=== PATIENT | male | born 1955 ===

== ENCOUNTER 2018-10-01 22:23 | Emergency (ER) | payer SELFPAY ==
[2018-10-01] MEDS ORDERED: NS 1,000 ML IV ONE ×2 (22:46→23:53)
[2018-10-01] MEDS ORDERED: ONDANSETRON 4 MG/2 ML VIAL IVP ONE (22:46)
[2018-10-01] MEDS ORDERED: PROMETHAZINE HCL 25 MG/ML INJ IVP ONE (22:46)
[2018-10-01] MEDS ORDERED: FAMOTIDINE 20 MG in NS 100 ML IV ONE (22:46)
--- NOTE | 2018-10-01 22:57 | EDPHY ---
H & P Smoking Status: Never smoked <Anabelle Parrylin Adriana - Last Filed: 10/01/18 22:54> <Dasha Light - Last Filed: 10/02/18 01:46> Time Seen by Provider: 10/01/18 22:41 HPI/ROS: HPI Dizziness. Vomiting. 63-year-old male by private vehicle with his daughter and . He is and Yakut-speaking only. His daughter however translates competently. He presents to the emergency department with complaint of dizziness which is described as vertigo since early this morning accompanied by nausea and vomiting. He has had multiple episodes of vomiting described as nonbilious, nonbloody since this morning. He has not had any chest pain. Denies palpitations. Denies any focal weakness or loss of sensation in his extremities. No headache. No abdominal pain. ROS: Constitutional: No fever, no chills. No weakness. Eyes: No discharge. No changes in vision. ENT: No sore throat. No nasal congestion or rhinorrhea. Respiratory: No cough. No shortness of breath. Cardiac: No chest pain, no palpitations. Gastrointestinal: No abdominal pain, as above. Genitourinary: No hematuria. No dysuria or increased frequency with urination. Musculoskeletal: No back pain. No neck pain. No myalgias or arthralgias. Skin: No rashes. Neurological: No headache. No focal weakness or altered sensation. Past medical history: Prostatic hypertrophy. Type 2 diabetes he takes metformin for this. Hypertension. Hyperlipidemia. Primary care is through [facility]. Social history: Nonsmoker. Here with his and daughter. Denies alcohol. Physical Exam: General Appearance: Alert, he is not in distress. This patient is responding to questions appropriately and in full sentences. This patient appears well- hydrated and well-nourished. Eyes: Pupils equal and round no pallor or injection. No lid edema, erythema or injection. Mild Uni directional horizontal nystagmus. Respiratory: There are no retractions, lungs are clear to auscultation with good air movement bilaterally. Cardiovascular: Regular rate and rhythm. No murmur. Gastrointestinal: Abdomen is soft and nontender, no masses, bowel sounds normal. No focal tenderness at McBurney's point. No Kumar sign. Neurological: Motor sensory function is grossly intact. Cranial nerves are normal. Gait is normal. Cerebellar testing [id number], [id number] normal. Skin: Warm and dry, no rashes. Musculoskeletal: Neck is supple and nontender. Extremities are symmetrical. All joints range without pain or impingement. Psychiatric: No agitation. No depression. Database: EKG: EKG time is 10:51 p.m.; EKG shows a narrow complex normal sinus rhythm with a ventricular rate of 83. The PA, QRS, QT intervals are within normal limits. There are no ST-T wave changes indicative of ischemic or injury pattern. No evidence of right heart strain. Interpreted by me. Imaging: Procedures: Emergency department course: Triage vital signs reviewed. He is afebrile. He is moderately hypertensive. Pulse oximetry on room air low at 91%. IV placed. He was placed on a school bus monitor. He was started on IV normal saline with 1 L to be given over the next hour. For nausea and vomiting he will initially be given 4 mg of IV Zofran, 12.5 mg of IV Phenergan and 20 mg of IV Pepcid. EKG obtained and reviewed by myself. Care turned over to Dr. Dali Light at 11:00 p.m.. Differential Diagnosis: The differential diagnosis on this patient includes but is not limited to benign positional vertigo, central etiology of vertigo, DKA, food-borne illness , viral gastritis. This represents a partial list of diagnoses considered. These considerations are based on history, physical exam, past history, reassessment and diagnostic testing. (Candie Parry) Constitutional: Initial Vital Signs Temperature (C) 99.1 F 10/01/18 22:30 Heart Rate 82 10/01/18 22:30 Respiratory Rate 16 10/01/18 22:30 Blood Pressure 158/99 H 10/01/18 22:30 O2 Sat (%) 91 L 10/01/18 22:30 O2 Delivery Mode Room Air O2 (L/minute) 2 Allergies/Adverse Reactions: No Known Allergies Allergy (Unverified 10/01/18 22:37) Home Medications: Medication Instructions Recorded Finasteride [Proscar 5 MG (*)] 5 mg PO DAILY 10/01/18 Lisinopril 10 mg PO 10/01/18 Meloxicam 7.5 mg PO 10/01/18 Metformin HCl [Metformin 1000 mg] 1,000 mg PO 10/01/18 Pravastatin Sodium [Pravachol] 40 mg PO 10/01/18 Terazosin HCl [Hytrin 5 MG (*)] 5 mg PO 10/01/18 Medical Decision Making <Candie Parry - Last Filed: 10/01/18 22:54> - Diagnostics Imaging: Discussed imaging studies w/ broadband installer Radiologist (Prelinimary report per Dr. Au, [facility]: No acute intracranial abnormality. 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 No acute ischemic changes. (Dasha Light) ED Course/Re-evaluation: Mr. Mckenzie 63-year-old male was signed out to me at 11:00 p.m. After a brief history, physical and workup by the previous provider. A complete independent history, exam and evaluation was performed by me (environmental health safety engineer Lil #[id number]). The patient has been having dizziness and vomiting since this morning at 7:00 a.m.. He has not been ill recently. He denies ill contacts. He has had no previous episodes of this sort that he remembers. He denies headache, changes in vision, chest pain, shortness of breath, abdominal pain except at the time of vomiting, constipation, diarrhea, dysuria, numbness, tingling, weakness, or any other concerns. No new medications. His complete blood count is significant for a slightly elevated white blood cell count at 12.88. His comprehensive metabolic panel was within normal limits. Troponin was negative. Lactic acid was elevated at 3.5. EKG normal sinus rhythm without acute ischemic changes. He had been given famotidine, ondansetron, and promethazine as well as a liter of saline and was feeling better except for scant residual dizziness. CT brain: No acute intracranial abnormality. At least mild cerebral atrophy. (Preliminary report, [facility]). After three liters of normal saline it corrected to 2.4. Business Transformation Manager Vanessa #[id number] used to review results and answer questions. Dizziness 0/10. No nausea or vomiting. Gait normal. Patient and family understand that no clear cause for his symptoms has been identified this evening. They are aware it could be as serious as a stroke or as simple as benign positional vertigo. He was offered admission but declines and will see his PCP tomorrow (Tuesday, October 02) or return to the ER sooner if symptoms change or worsen. He was given a take home tablet of meclizine 25mg as well as a take home pack (#2) of Zofran 4mg ODT. He was given a work note for three days. (Dasha Light) - Data Points Laboratory Results: 10/02/18 10/01/18 10/01/18 01:00 23:45 22:47 POC Blood Source VENOUS VENOUS Patient Temperature 37.6 DEGREES DEGREES 37.7 DEGREES DEGREES POC VBG pH 7.33 7.38 (7.31-7.42) (7.31-7.42) POC VBG pCO2 43 mmHg mmHg 39 mmHg L mmHg (40-44) (40-44) POC VBG pO2 47 mmHg H mmHg 66 mmHg H mmHg (35-40) (35-40) POC VBG HCO3 22 mEq/L mEq/L 22 mEq/L mEq/L (22-26) (22-26) POC VBG Total CO2 24 mEq/L mEq/L 24 mEq/L mEq/L (21-27) (21-27) POC VBG Base Excess -3.0 mEq/L L mEq/L -3.0 mEq/L L mEq/L (-2.5-2.5) (-2.5-2.5) POC Mix VBG O2 Sat 78 % H % 92 % H % (65-75) (65-75) POC Sodium POC Potassium POC Chloride POC Total CO2 POC BUN POC Creatinine POC Glucose POC Lactic Acid Joshua 2.4 mmol/L H D mmol/L 3.5 mmol/L H mmol/L (0.7-2.1) (0.7-2.1) POC Calcium POC Total Bilirubin POC AST POC ALT POC Alk Phosphatase POC Troponin I 0.01 ng/mL ng/mL (0.00-0.08) POC Total Protein POC Albumin 10/01/18 22:46 POC Blood Source Patient Temperature POC VBG pH POC VBG pCO2 POC VBG pO2 POC VBG HCO3 POC VBG Total CO2 POC VBG Base Excess POC Mix VBG O2 Sat POC Sodium 142 mEq/L mEq/L (135-145) POC Potassium 4.0 mEq/L mEq/L (3.3-5.0) POC Chloride 100.0 mEq/L mEq/L (97-110) POC Total CO2 25 mEq/L mEq/L (22-31) POC BUN 16 mg/dL mg/dL (7-23) POC Creatinine 0.9 mg/dL mg/dL (0.7-1.3) POC Glucose 134 mg/dL H mg/dL (70-100) POC Lactic Acid Joshua POC Calcium 9.9 mg/dL mg/dL (8.5-10.4) POC Total Bilirubin 0.8 mg/dL mg/dL (0.1-1.4) POC AST 36 IU/L IU/L (17-59) POC ALT 45 IU/L IU/L (21-72) POC Alk Phosphatase 60 IU/L IU/L (38-126) POC Troponin I POC Total Protein 7.2 g/dL g/dL (6.3-8.2) POC Albumin 4.3 g/dL g/dL (3.5-5.0) Medications Given: Discontinued Medications Sodium Chloride (Ns) 1,000 mls @ 0 mls/hr IV EDNOW ONE; Wide Open PRN Reason: Protocol Stop: 10/01/18 22:47 Last Admin: 10/01/18 22:53 Dose: 1,000 mls Famotidine 20 mg/ Sodium (Chloride) 102 mls @ 408 mls/hr IV EDNOW ONE Stop: 10/01/18 23:00 Last Admin: 10/01/18 22:55 Dose: 102 mls Sodium Chloride (Ns) 1,000 mls @ 0 mls/hr IV EDNOW ONE; Wide Open PRN Reason: Protocol Stop: 10/01/18 23:54 Last Admin: 10/02/18 00:02 Dose: 1,000 mls Sodium Chloride (Ns) 1,000 mls @ 0 mls/hr IV EDNOW ONE; Wide Open PRN Reason: Protocol Stop: 10/02/18 00:16 Last Admin: 10/02/18 00:18 Dose: 1,000 mls Meclizine HCl (Meclizine Hcl) 25 mg PO EDNOW ONE Stop: 10/02/18 01:33 Last Admin: 10/02/18 01:34 Dose: 25 mg Ondansetron HCl (Zofran) 4 mg IVP EDNOW ONE Stop: 10/01/18 22:47 Last Admin: 10/01/18 22:57 Dose: 4 mg Promethazine HCl (Phenergan) 12.5 mg IVP EDNOW ONE Stop: 10/01/18 22:47 Last Admin: 10/01/18 22:59 Dose: 12.5 mg Point of Care Test Results: CBC CBC Collection Date 10/01/18 CBC Collection Time 22:35 WBC 12.88 RBC 4.7 HGB 14.9 HCT 40.8 PLT 147 Neut # 7.82 Neut 60.7 LYMPH # 3.92 LYMPH 30.4 MCV 86.8 Chemistry 10/01/18 10/01/18 22:47 22:46 POC Sodium 142 mEq/L mEq/L (135-145) POC Potassium 4.0 mEq/L mEq/L (3.3-5.0) POC Chloride 100.0 mEq/L mEq/L (97-110) POC Total CO2 25 mEq/L mEq/L (22-31) POC BUN 16 mg/dL mg/dL (7-23) POC Creatinine 0.9 mg/dL mg/dL (0.7-1.3) POC Glucose 134 mg/dL H mg/dL (70-100) POC Calcium 9.9 mg/dL mg/dL (8.5-10.4) POC Total Bilirubin 0.8 mg/dL mg/dL (0.1-1.4) POC AST 36 IU/L IU/L (17-59) POC ALT 45 IU/L IU/L (21-72) POC Alk Phosphatase 60 IU/L IU/L (38-126) POC Troponin I 0.01 ng/mL ng/mL (0.00-0.08) POC Total Protein 7.2 g/dL g/dL (6.3-8.2) POC Albumin 4.3 g/dL g/dL (3.5-5.0) Blood Gas/Lactic Acid-Arterial 10/01/18 10/02/18 23:45 01:00 POC Blood Source VENOUS VENOUS Blood Gas/Lactic Acid-Venous 10/02/18 10/01/18 01:00 23:45 POC VBG pH 7.33 7.38 (7.31-7.42) (7.31-7.42) POC VBG pCO2 43 mmHg mmHg 39 mmHg L mmHg (40-44) (40-44) POC VBG pO2 47 mmHg H mmHg 66 mmHg H mmHg (35-40) (35-40) POC VBG HCO3 22 mEq/L mEq/L 22 mEq/L mEq/L (22-26) (22-26) POC VBG Total CO2 24 mEq/L mEq/L 24 mEq/L mEq/L (21-27) (21-27) POC VBG Base Excess -3.0 mEq/L L mEq/L -3.0 mEq/L L mEq/L (-2.5-2.5) (-2.5-2.5) POC Mix VBG O2 Sat 78 % H % 92 % H % (65-75) (65-75) POC Lactic Acid Joshua 2.4 mmol/L H D mmol/L 3.5 mmol/L H mmol/L (0.7-2.1) (0.7-2.1) Departure <Candie Parry - Last Filed: 10/01/18 22:54> <Dasha Light - Last Filed: 10/02/18 01:46> - Departure Disposition: Home, Routine, Self-Care Clinical Impression: Vomiting, Vertigo Condition: Good Instructions: Vertigo (ED), Acute Nausea and Vomiting (ED) Additional Instructions: See your doctor tomorrow without fail. Call first thing in the morning and tell them you are an ER follow up. Return to the ER immediately if symptoms change or worsen as discussed. Referrals: [facility],. [Clinic] - As per Instructions Stand Alone Forms: Work Excuse Print Language: Yakut
[2018-10-02] MEDS ORDERED: NS 1,000 ML IV ONE (00:15)
[2018-10-02 01:22] VITALS: BP 132/95
[2018-10-02] MEDS ORDERED: MECLIZINE HCL 25 MG TAB PO ONE (01:32)
[2018-10-02] MEDS ORDERED: ONDANSETRON 4MG PREPACK#2 BTL TAKEHOME ONE (01:35)
--- NOTE | 2018-10-03 07:07 | CPEKG ---
Test Reason : OPEN Blood Pressure : / mmHG Vent. Rate : 083 BPM Atrial Rate : 082 BPM P-R Int : 145 ms QRS Dur : 087 ms QT Int : 377 ms P-R-T Axes : 023 -19 002 degrees QTc Int : 443 ms Sinus rhythm Inferior infarct, old Confirmed by Candie Parry ([id number]) on 10/03/2018 7:07:06 AM Referred By: Dasha Light Confirmed By:Candie Parry
== END 2018-10-02 01:50 | disposition home or self-care (01) ==
LOC: CED 22:23
DX: R42 Dizziness and giddiness (principal); R11.10 Vomiting, unspecified; I10 Essential (primary) hypertension; E78.5 Hyperlipidemia, unspecified; E11.9 Type 2 diabetes mellitus without complications; N40.0 Benign prostatic hyperplasia without lower urinary tract symptoms; E86.9 Volume depletion, unspecified
CPT/HCPCS: 70450-PO; 80053-ER; 83605-ER; 84484-ER; 85025-QW-ER; 96361-ER; 96365-ER; 96375-ER; 96376-ER; 99285-ER; J2405; J2550